=== PATIENT | female | born 2000 ===

== ENCOUNTER 2023-01-03 19:54 | Emergency (ER) | payer MEDICAID, SELFPAY ==
--- NOTE | ~2023-01-03 | US_ITS ---
EXAMINATION: US OBSTETRICAL ULTRASOUND CLINICAL INFORMATION: Vaginal bleeding COMPARISON: None available. LMP: 11/24/2022. Gestational age by maternal dates is 5 weeks 5 days. Estimated date of delivery by maternal dates is 08/31/2023. TECHNIQUE: Ultrasound of the maternal pelvis is performed using transabdominal and transvaginal transducers. Transvaginal imaging is performed due to inadequate visualization transabdominally. M-mode Doppler is also performed. FINDINGS: There is a single intrauterine gestational sac with visible yolk sac, embryo/fetus, and cardiac activity. There is no significant subchorionic hemorrhage or hematoma. HR: 109 beats per minute. CRL (crown rump length): 0.24 cm (5 weeks 6 days +/- 4 days). JENA (estimated date of delivery): 08/30/2023 +/- 4 days. MATERNAL ADNEXA: The right maternal ovary measures 2.7 x 1.6 x 1.6 cm and appears unremarkable. The left maternal ovary measures 3.3 x 2.4 x 1.8. Thick-walled left ovarian cyst measuring up to 1.9 cm likely represents a corpus luteum cyst. There is no significant maternal adnexal mass. No maternal pelvic ascites. US/US OB pelvic and transvaginal IMPRESSION: 1. Single intrauterine gestation with ultrasound gestational age of 5 weeks 6 days +/- 4 days. 2. Estimated date of delivery is 08/30/2023 +/- 4 days. 3. No maternal adnexal mass or pelvic ascites.
[2023-01-03 20:01] VITALS: BP 119/82; PULSE 72; RESP 16; TEMP 36.7; O2SAT 98; BMI 29.0
--- NOTE | 2023-01-03 20:13 | ED_ITS ---
HPI - General Adult General Chief complaint: General Medical Stated complaint: Vaginal Bleeding 6 weeks Time Seen by Provider: 01/03/23 22:24 Source: patient Mode of arrival: ambulatory Limitations: language barrier (Nigerien-speaking medical services coordinator verbalized) History of Present Illness HPI narrative: Patient is a 22-year-old female presents emergency department for evaluation of vaginal bleeding. She reports that she is newly . She had evaluation at [facility] earlier today, she states she has not sure what they found as she is Nigerien-speaking in the spoke to her in [place]. They recommended that she follow up with a clinic. Bleeding began earlier today but it was a small amount and spotting. After she left [facility] she reports that the bleeding became heavier and she has went through 3 cm a tearing applicant since then. She does state that she was told that if the bleeding worsens she should be re-evaluated. She denies headache, dizziness, chest pain, shortness of breath, difficulty breathing, abdominal pain, abnormal vaginal discharge. Related Data Allergies Allergy/AdvReac Type Severity Reaction Status Date / Time Peanut Butter AdvReac Rash Verified 01/03/23 20:07 Review of Systems Review of Systems: Yes all other systems are reviewed and are negative PMFSH Past Medical History Attestation statement: The following information was validated with the patient. Source: old records reviewed Social History Social History Advance Directives: No Advance Directives Information Provided: No Physical Exam ED Vital Signs: Vital Signs - 24 hr 01/04/23 00:17 Temperature 98.7 F Pulse Rate 66 Blood Pressure 106/62 Pulse Oximetry 100 Oxygen Delivery Method Room Air BMI result Body Mass Index 29.0 Appearance: Alert.?Oriented to person, place and time. No acute distress.?Normal affect. Eyes: Pupils equal, round and reactive to light.? ENT: Pharynx normal.?? Neck: Normal inspection.? Neck supple.?? CVS: Heart sounds normal. Normal heart rate and rhythm.? Pulses normal.?? Respiratory: No respiratory distress.? Lung sounds clear to auscultation bilaterally?? Abdomen: Soft and non-tender. Normoactive bowel sounds. ? Skin: Skin warm and dry.? Normal skin color.? Extremities: No lower extremity edema.? Neuro: Moves all extremities spontaneously. Sensation intact bilaterally. No focal neuro deficits. Ambulates with normal steady gait. Course Course Course Narrative: RME- 22 year old female presents for evaluation of vaginal bleeding. Plan for labs, UA. Patient recently had a workup at [facility]. She was told she is and this would be Medical Decision Making Medical Decision Making MDM Narrative: Patient is a 22-year-old female who presents emergency department for evaluation of vaginal bleeding in the setting of ; , unsure of date of last menstrual cycle. At this time her workup at [facility] is not entirely clear, we are attempting to obtain records at this time for further evaluation. Reviewed labs obtained from rapid medical examination, stable H&H, overall unremarkable CMP. Patient declined any genital or internal pelvic exami nation at this time. Pelvic ultrasound revealing a single intrauterine gestation of approximately 5 weeks and 6 days with no adnexal mass or pelvic ascites. Reviewed these findings with patient, discussed threatened miscarriage, outpatient follow-up with OB, repeat hCG potential repeat ultrasound. Provided with contact information. Rh status is positive therefore she will not require RhoGAM. Differential Diagnosis Differential Diagnoses: The differential diagnosis associated with the presentation includes (Ectopic , threatened miscarriage, spontaneous miscarriage) Admission/Observation Consideration of admission/observation: Escalation of care including admission/observation considered (I considered admission for vaginal bleeding during , see course narrative for further details.) Lab Data [facility] Lab Attestation statement: I reviewed the patient's lab results. (See above narrative for details) 01/03/23 20:40 01/03/23 20:40 Labs: Lab Results 01/03/23 01/03/23 01/04/23 Range/Units 20:40 20:40 00:14 WBC 10.0 (4.8-10.8) X10*3/uL RBC 4.06 L (4.20-5.50) X10*6/uL Hgb 13.1 (12.0-16.0) g/dl Hct 37.6 (37.0-47.0) % MCV 92.6 (80.0-98.0) fL MCH 32.3 (27.0-33.0) pg MCHC 34.8 (31.0-35.0) g/dl RDW 12.7 (11.0-16.0) % Plt Count 218 (160-400) X10*3/uL MPV 10.5 (9.4-12.3) fL Immature Gran % (Auto) 0.2 (0.0-0.4) % Neut % (Auto) 61.0 (45-73) % Lymph % (Auto) 28.2 (20-40) % [place] % (Auto) 9.7 (2-11) % Eos % (Auto) 0.6 (0-4) % Baso % (Auto) 0.3 (0-2) % Lymph # (Auto) 2.8 (1.2-4.9) X10*3/uL [place] # (Auto) 1.0 (0.1-1.2) X10*3/uL Eos # (Auto) 0.1 (0.0-0.4) X10*3/uL Baso # (Auto) 0.0 (0.0-0.2) X10*3/uL Abs Immat Gran (auto) 0.02 (0.00-0.03) X10*3/uL Absolute Neuts (auto) 6.1 (2.0-8.3) x10*3/uL Absolute Nucleated RBC 0.000 (0.0-0.012) X10*3/uL Nucleated RBC % (auto) 0.0 (0.0-0.2) /100WBC Sodium 136 (135-145) mmol/L Potassium 4.6 (3.3-5.1) mmol/L Chloride 108 (96-108) mmol/L Carbon Dioxide 25 (22-29) mmol/L Anion Gap 8 L (12-20) BUN 6 L (9-16) mg/dL Creatinine 0.71 (0.5-1.4) mg/dL Estim Creat Clear Calc 92.3 Estimated GFR > 60 Random Glucose 90 (60-115) mg/dL Calcium 9.3 (8.4-10.2) mg/dL Total Bilirubin 0.5 (0.0-1.0) mg/dL AST 15 (5-31) U/L ALT 10 (0-31) U/L Alkaline Phosphatase 48 (39-117) U/L Total Protein 6.4 L (6.5-8.0) g/dL Albumin 3.8 (3.5-5.0) g/dL Lipase 25 (8-78) U/L Beta HCG, Quant 13774 mIU/mL Urine Color Urine Appearance Urine pH (5.0-9.0) Ur Specific [place] (1.005-1.025) Urine Protein (Neg-Trace) mg/dL Urine Glucose (UA) (Negative) mg/dL Urine Ketones (Negative) mg/dL Urine Blood (Negative) Urine Nitrite (Negative) Ur Leukocyte Esterase (Negative) Urine RBC (0-2) /HPF Urine WBC (0-5) /HPF Ur Squamous Epith Cells (0-2) /HPF Urine Bacteria (None Seen) Hyaline Casts (0-2) /LPF Blood Type O Positive 01/04/23 Range/Units 00:27 WBC (4.8-10.8) X10*3/uL RBC (4.20-5.50) X10*6/uL Hgb (12.0-16.0) g/dl Hct (37.0-47.0) % MCV (80.0-98.0) fL MCH (27.0-33.0) pg MCHC (31.0-35.0) g/dl RDW (11.0-16.0) % Plt Count (160-400) X10*3/uL MPV (9.4-12.3) fL Immature Gran % (Auto) (0.0-0.4) % Neut % (Auto) (45-73) % Lymph % (Auto) (20-40) % [place] % (Auto) (2-11) % Eos % (Auto) (0-4) % Baso % (Auto) (0-2) % Lymph # (Auto) (1.2-4.9) X10*3/uL [place] # (Auto) (0.1-1.2) X10*3/uL Eos # (Auto) (0.0-0.4) X10*3/uL Baso # (Auto) (0.0-0.2) X10*3/uL Abs Immat Gran (auto) (0.00-0.03) X10*3/uL Absolute Neuts (auto) (2.0-8.3) x10*3/uL Absolute Nucleated RBC (0.0-0.012) X10*3/uL Nucleated RBC % (auto) (0.0-0.2) /100WBC Sodium (135-145) mmol/L Potassium (3.3-5.1) mmol/L Chloride (96-108) mmol/L Carbon Dioxide (22-29) mmol/L Anion Gap (12-20) BUN (9-16) mg/dL Creatinine (0.5-1.4) mg/dL Estim Creat Clear Calc Estimated GFR Random Glucose (60-115) mg/dL Calcium (8.4-10.2) mg/dL Total Bilirubin (0.0-1.0) mg/dL AST (5-31) U/L ALT (0-31) U/L Alkaline Phosphatase (39-117) U/L Total Protein (6.5-8.0) g/dL Albumin (3.5-5.0) g/dL Lipase (8-78) U/L Beta HCG, Quant mIU/mL Urine Color Yellow Urine Appearance Clear Urine pH 7.0 (5.0-9.0) Ur Specific [place] 1.015 (1.005-1.025) Urine Protein Negative (Neg-Trace) mg/dL Urine Glucose (UA) Negative (Negative) mg/dL Urine Ketones Trace (Negative) mg/dL Urine Blood Small (1+) H (Negative) Urine Nitrite Negative (Negative) Ur Leukocyte Esterase Negative (Negative) Urine RBC 0-2 (0-2) /HPF Urine WBC 0-5 (0-5) /HPF Ur Squamous Epith Cells 0-2 (0-2) /HPF Urine Bacteria None Seen (None Seen) Hyaline Casts 0-2 (0-2) /LPF Blood Type Radiology Impression Discussion of test interpretation with radiology: I have reviewed the radiologist's reading. Radiologist Impression: US/US OB pelvic and transvaginal IMPRESSION: 1.? Single intrauterine gestation with ultrasound gestational age of 5 weeks 6 days +/- 4 days. 2.? Estimated date of delivery is 08/30/2023 +/- 4 days. 3.? No maternal adnexal mass or pelvic ascites. External Record Review External record reviewed: Outside ED record Discharge Plan Discharge Clinical Impression: Vaginal bleeding in , Miscarriage, threatened, early Patient Disposition: Home, Self-Care Instructions: Threatened Miscarriage (ED) Additional Instructions: Contact OBGYN office first thing tomorrow morning to arrange for a follow-up visit. You will require repeat of your blood levels, and they may consider repeating your ultrasound. Referrals: Yoni Garcia MD [Physician] - Discharge Date/Time: 01/04/23 00:56 Print Language: Nigerien
[2023-01-03 20:44] LABS: MANUAL DIFF FLAG NO
[2023-01-03 20:50] LABS: Basophils Percent Auto 0.3 % (0-2); Eosinophils Absolute Auto 0.1 X10*3/uL (0.0-0.4); Eosinophils Percent Auto 0.6 % (0-4); Hematocrit 37.6 % (37.0-47.0); Hemoglobin 13.1 g/dl (12.0-16.0); Imm Gran Abs Auto 0.02 X10*3/uL (0.00-0.03); Imm Gran Pct Auto 0.2 % (0.0-0.4); Lymphocytes Absolute Auto 2.8 X10*3/uL (1.2-4.9); Lymphocytes Percent Auto 28.2 % (20-40); Mean Corpuscular HGB Conc 34.8 g/dl (31.0-35.0); Mean Corpuscular Hemoglobin 32.3 pg (27.0-33.0); Mean Corpuscular Volume 92.6 fL (80.0-98.0); Mean Platelet Volume 10.5 fL (9.4-12.3); Monocytes Percent Auto 9.7 % (2-11); Neutrophils Absolute Auto 6.1 x10*3/uL (2.0-8.3); Platelet Count 218 X10*3/uL (160-400); Red Blood Count 4.06 X10*6/uL (4.20-5.50); Red Cell Distribution Width 12.7 % (11.0-16.0)
[2023-01-03 21:03] LABS: Alanine Aminotransferase 10 U/L (0-31); Albumin Level 3.8 g/dL (3.5-5.0); Alkaline Phosphatase 48 U/L (39-117); Anion Gap 8 (12-20); Aspartate Amino Transferase 15 U/L (5-31); Bilirubin Total 0.5 mg/dL (0.0-1.0); Blood Urea Nitrogen 6 mg/dL (9-16); Calcium 9.3 mg/dL (8.4-10.2); Carbon Dioxide 25 mmol/L (22-29); Chloride 108 mmol/L (96-108); Creatinine Clr Calc Pharmacy 92.3; Estimated Glomerular Filt Rate > 60; Glucose Random 90 mg/dL (60-115); Lipase 25 U/L (8-78); Potassium 4.6 mmol/L (3.3-5.1); Sodium 136 mmol/L (135-145); Total Protein 6.4 g/dL (6.5-8.0)
[2023-01-03 21:25] LABS: HCG Quantitative 50337 mIU/mL
[2023-01-04 00:17] VITALS: BP 106/62; PULSE 66; TEMP 37.1; O2SAT 100
[2023-01-04 00:36] LABS: Appearance Urine Clear; Color Urine Yellow; Glucose Urine UA Negative (Negative); Leukocyte Esterase Urine Negative (Negative); Nitrite Urine Negative (Negative); Specific Gravity - Urine 1.015 (1.005-1.025); UMIC TRIGGER UACC YES; Urine Blood Small (1+) (Negative); Urine Ketones Trace mg/dL (Negative); Urine Protein Negative (Neg-Trace)
[2023-01-04 00:51] LABS: Bacteria Urine None Seen (None Seen); Hyaline Casts Urine 0-2 /LPF (0-2); RBC Urine 0-2 /HPF (0-2); Squamous Epithelial Cell Urine 0-2 /HPF (0-2); WBC Urine 0-5 /HPF (0-5)
== END 2023-01-04 00:56 | disposition home or self-care (01) ==
PROVIDERS: Physician Assistant; Emergency Provider Internal Medicine
DX: O20.0 Threatened abortion (principal); Z3A.01 Less than 8 weeks gestation of pregnancy; Z79.899 Other long term (current) drug therapy
CPT/HCPCS: 36415; 76801; 76817; 80053; 81001; 83690; 84702; 85025; 86900; 86901; 99283; 99284

== ENCOUNTER 2023-06-16 17:50 | Emergency (ER) | payer MEDICAID, SELFPAY ==
[2023-06-16 17:53] VITALS: BP 117/64; PULSE 87; RESP 24; TEMP 36.2; O2SAT 99; BMI 32.3
--- NOTE | 2023-06-16 17:53 | ED_ITS ---
HPI - General Adult General Chief complaint: OB Stated complaint: - abd pain Time Seen by Provider: 06/16/23 18:02 Source: patient and paraprofessional interpreter Mode of arrival: ambulatory Limitations: language barrier History of Present Illness HPI narrative: Patient is a 22 year old assigned female at with a history of currently being 29 weeks , presenting to the emergency department today with abdominal pain. Patient states that suddenly 30 minutes ago she began to have sharp abdominal pain. Patient denies any vaginal bleeding, discharge, dizziness, lightheadedness, abdominal pain, nausea, vomiting, fever, chills, blurry vision, double vision, loss of vision, chest pain, difficulty breathing, shortness of breath, back pain, night sweats, pain with urination, increased urinary frequency, increased urinary urgency, blood in her urine or stool, syncope or a near syncopal episode, recent trauma or falls, bowel incontinence, bladder incontinence, bowel retention, bladder retention, or any other complaints at this time. Onset (ago): minute(s) (30) Location: abdomen Relieving factors: none Exacerbating factors: none Associated symptoms: denies other symptoms Treatments prior to arrival: none Related Data Allergies Allergy/AdvReac Type Severity Reaction Status Date / Time Peanut Butter AdvReac Rash Verified 06/16/23 17:59 Review of Systems Constitutional: Constitutional: Reports no additional constitutional complaints, Denies chills, Denies fever(s) and Denies night sweats Eyes: Eyes: Reports no additional eye complaints, Denies blurry vision, Denies change in vision, Denies diplopia, Denies eye discharge, Denies loss of vision and Denies eye pain ENT: Denies dizziness Cardiovascular: Cardiovascular: Reports no additional cardiovascular complaints, Denies chest pain, Denies lightheadedness, Denies Loss of Consciousness and Denies dyspnea Respiratory: Respiratory: Reports no additional respiratory complaints and Denies dyspnea Gastrointestinal: Gastrointestinal: Reports no additional gastrointestinal complaints, Reports abdominal pain, Denies melena, Denies hematochezia, Denies change in bowel habits and Denies change in stool character Genitourinary: Genitourinary: Denies hematuria, Denies urinary frequency, Denies dysuria, Denies urinary incontinence, Denies urinary hesitancy and Denies urinary urgency Musculoskeletal: Musculoskeletal: Reports no additional musculoskeletal complaints, Denies numbness and Denies tingling Neurologic: Denies dizziness, Denies loss of vision, Denies numbness and Denies tingling Psychiatric: Psychiatric: Reports no additional psychiatric complaints Endocrine: Endocrine: Reports no additional endocrine complaints Hematologic/Lymphatic: Hematologic/Lymphatic: Reports no additional hematologic/lymphatic complaints Allergic/Immunologic: Allergic/Immunologic: Reports no additional allergic/immunologic complaints [facility] Past Medical History Attestation statement: The following information was validated with the patient. Source: old records reviewed and nursing notes reviewed Social History Social History Advance Directives: No Advance Directives Information Provided: No Physical Exam ED Vital Signs: Vital Signs - 24 hr 06/16/23 17:53 Temperature 97.1 F Pulse Rate 87 Respiratory Rate 24 H Blood Pressure 117/64 Pulse Oximetry 99 Oxygen Delivery Method Room Air BMI result Body Mass Index 32.3 Const General: cooperative, no acute distress, alert and awake Nutritional Appearance: well nourished Orientation/consciousness: patient oriented x3 Limitations: no limitations HENMT Head: Yes normal to inspection and Yes atraumatic Ears: hearing grossly normal bilaterally and external ears normal General nose exam: Normal external nose present, no nasal discharge noted and no epistaxis Face and sinus: Yes normal facial exam, No abrasion and No laceration Mouth: Normal oral and palatal mucosa present, no drooling and no muffled voice Eyes General: appearance normal, both eyes and all related structures Periorbital: periorbital findings normal Eyelids: Yes eyelids normal Conjunctivae: conjunctivae normal Pupils: Equal, round and reactive pupils present EOM: EOMs intact bilaterally Neck Neck: Yes normal visual inspection, Yes full ROM and Yes no lymphadenopathy Chest Chest palpation & inspection: normal inspection of the chest Resp Effort & Inspection: normal respiratory effort and able to speak in complete sentences GI Inspection: Yes normal to inspection Palpation (GI): Soft to palpation External Female Exam: normal external appearance and other (no ) Neuro General: patient oriented x3 and moves all extremities Cranial nerves: Yes Equal, round and reactive pupils present Cognition (Neuro): normal cognition Motor exam (neuro): 5/5 motor strength present throughout Sensory Exam: Normal double simultaneous stimulation for sensation Coordination: [id number] test normal Extrem General: Yes normal to inspection, Yes full ROM and Yes capillary refill normal Psych Appearance: grossly normal Mental Status: mental status grossly normal Affect: normal affect Attitude: cooperative Thought process: Normal thought process present Thought content: Normal thought content present Insight: Good insight present (Psych) Course Course Course Narrative: This is a rapid medical exam: Additional HPI, ROS, PE not included below will be deferred to primary provider. Patient is a 22-year-old [place]ian-speaking female 27 weeks presenting to the emergency department with abdominal pain/cramping for the past 30 minutes. Denies any vaginal bleeding, does not feel water broke, frequent urination. Feels movements. Goes to [facility] [employer] care. sheet rock hanger notified and patient placed directly into exam room. Medical Decision Making Medical Decision Making MDM Narrative: Patient is a 22 year old assigned female at with a history of being 29 weeks , , presenting to the emergency department today with sharp abdominal pain. Patient's physical exam showed heart tones of 155-165 and no . I called and spoke to Dr. Fonseca at [facility] who agreed to transfer. I explained my physical exam findings to the patient. I answered all questions asked by the patient. I stressed the importance of the patient taking her medication as prescribed. Patient verbalized agreement and understanding with this treatment plan and transfer. Differential Diagnosis Differential Diagnoses: The differential diagnosis associated with the presentation includes Possible labor Pre-term labor Abdominal pain Admission/Observation Consideration of admission/observation: Escalation of care including admission/observation considered Patient transferred to [facility] Consult Healthcare Provider Management of the patient was discussed with: Sap Ppm Consultant (spoke to OBGYN Dr. Fonseca as noted in the MDM Rationale portion of this note.) Critical Care Time Critical Care Time Critical Care Time: Yes Total Critical Care Time: 35 Attestation: I spent 35 minutes of Critical Care Time with this patient. This does not include time spent on separately reported billable procedures. Discharge Plan Discharge Clinical Impression: Premature labor, Abdominal pain Patient Disposition: Critical Access Hospital Hospital Transfer Details: [facility]
--- NOTE | 2023-06-16 18:12 | PC.NURSE ---
HEART RATE 155-160 STRONG AND REGULAR. MOVEMENT NOTED DURING FHR ASSESSMENT
== END 2023-06-16 18:45 | disposition short-term general hospital (02) ==
PROVIDERS: Emergency Provider Emergency Medicine Emergency Medical Services
DX: O60.02 Preterm labor without delivery, second trimester (principal); O26.892 Other specified pregnancy related conditions, second trimester; R10.9 Unspecified abdominal pain; Z3A.19 19 weeks gestation of pregnancy
CPT/HCPCS: 99281; 99285